=== PATIENT | male | born 1950 | race African-American/Black ===

== ENCOUNTER 2020-03-04 08:42 | Emergency (ER) | payer MEDICARE, OTHER ==
[~2020-03-04] VITALS: Ht 185.4 cm; Wt 102.3 kg
[~2020-03-04 08:42] MED LIST: ALLO300 PO; ASPI81TA40 PO; CARV6 PO; CLOP75TA3 PO; CYCL10 PO; GABA-1181 PO; LOSA50TA37 PO; POTA8TAB4 PO; SIMV-261 PO; prilosec PO
[2020-03-04] MEDS ORDERED: POTA8TAB71 PO (08:55)
[2020-03-04] MEDS ORDERED: FURO20 PO (08:55)
[2020-03-04] MEDS ORDERED: PREG50 PO (08:55)
[2020-03-04] MEDS ORDERED: DULO30CA96 PO (08:55)
[2020-03-04] MEDS ORDERED: LOSA50TA37 PO (08:55)
[2020-03-04] MEDS ORDERED: BACL10TA PO (08:55)
[2020-03-04] MEDS ORDERED: PERCT PO (08:55)
[2020-03-04] MEDS ORDERED: AMLO-257 PO (08:55)
[2020-03-04 09:23] LABS: BASOPHILS % (AUTO) 0.6 % (0.0-2.0); EOSINOPHILS % (AUTO) 0.8 % (1.0-6.0); HEMATOCRIT 47.1 % (41-53); HEMOGLOBIN 15.8 g/dL (13.5-17.5); LYMPHOCYTES # (AUTO) 0.7 K/uL (1.0-4.8); LYMPHOCYTES % (AUTO) 15.4 % (22.0-44.0); MEAN CORPUSCULAR HEMOGLOBIN 31.2 pg (26.0-34.0); MEAN CORPUSCULAR HGB CONC 33.5 G/dL (31.0-37.0); MEAN CORPUSCULAR VOLUME 93 fL (80-100); MONOCYTES # (AUTO) 0.6 K/uL (0.1-1.0); MONOCYTES % (AUTO) 12.6 % (2.0-9.0); NEUTROPHILS # (AUTO) 3.2 K/uL (1.8-7.7); NEUTROPHILS % (AUTO) 70.6 % (40.0-70.0); PLATELET COUNT (AUTO) 193 K/uL (150-450); RED BLOOD CELL COUNT(AUTO) 5.05 MIL/uL (4.50-5.90); RED CELL DISTRIBUTION WIDTH 18.1 % (11.5-14.5)
[2020-03-04 09:37] LABS: CALCIUM, TOTAL 9.3 mg/dL (8.8-10.5); CREATININE 4.8 mg/dL (0.60-1.30); POTASSIUM 3.2 mmol/L (3.5-5.1)
[2020-03-04 10:02] LABS: ALBUMIN 4.1 g/dL (3.4-5.0); BILIRUBIN,TOTAL 1.1 mg/dL (0.1-1.0); MAGNESIUM 3.3 mg/dL (1.80-2.40); TOTAL PROTEIN, SERUM 9.6 g/dL (6.4-8.2)
[2020-03-04] MEDS ORDERED: ASPI-1111 PO (10:08)
[2020-03-04] MEDS ORDERED: SODIUM CHLORIDE 0.9% 1,000 ML IV ONE (10:15)
[2020-03-04] MEDS ORDERED: MORPHINE SULFATE 4 MG/ML SYRINGE IVP ONE (12:00)
[2020-03-04 12:23] LABS: PROTHROMBIN TIME 10.4 SEC (9.4-11.6)
[2020-03-04] MEDS ORDERED: HEPARIN SODIUM,PORCINE 5,000 UNITS/ML VIAL IVP ONE (12:30)
[2020-03-04] MEDS ORDERED: HEPARIN SODIUM,PORCINE 5,000 UNITS/ML VIAL IVP PRN ×2 (12:30)
[2020-03-04] MEDS ORDERED: HEPARIN SODIUM 25000 UNITS/D5W 250 ML IV PRN (12:30)
[2020-03-04 12:48] LABS: BASOPHILS % (AUTO) 0.5 % (0.0-2.0); EOSINOPHILS % (AUTO) 0.4 % (1.0-6.0); HEMATOCRIT 44.4 % (41-53); HEMOGLOBIN 14.8 g/dL (13.5-17.5); LYMPHOCYTES # (AUTO) 0.8 K/uL (1.0-4.8); LYMPHOCYTES % (AUTO) 15.4 % (22.0-44.0); MEAN CORPUSCULAR HEMOGLOBIN 31.2 pg (26.0-34.0); MEAN CORPUSCULAR HGB CONC 33.2 G/dL (31.0-37.0); MEAN CORPUSCULAR VOLUME 94 fL (80-100); NEUTROPHILS # (AUTO) 3.2 K/uL (1.8-7.7); NEUTROPHILS % (AUTO) 63.7 % (40.0-70.0); PLATELET COUNT (AUTO) 163 K/uL (150-450); RED BLOOD CELL COUNT(AUTO) 4.74 MIL/uL (4.50-5.90); RED CELL DISTRIBUTION WIDTH 17.9 % (11.5-14.5)
[2020-03-04 13:02] LABS: PROTHROMBIN TIME 10.6 SEC (9.4-11.6)
[2020-03-04] MEDS ORDERED: SODIUM BICARBONATE IV ONE (14:00)
[2020-03-04] MEDS ORDERED: SODIUM CHLORIDE 0.9% IV ONE (14:00)
[2020-03-04] MEDS ORDERED: SODIUM BICARBONATE 75 MEQ in SODIUM CHLORIDE 0.45% 1,000 ML IV ONE (14:00)
[2020-03-04 15:27] VITALS: BP 113/69
[2020-03-04 16:17] LABS: GLUCOSE,POINT OF CARE 121 MG/DL (70-110)
== END 2020-03-04 15:28 | disposition short-term general hospital (02) ==
LOC: EMS 08:48
DX: E83.41 Hypermagnesemia (principal); E87.1 Hypo-osmolality and hyponatremia; E87.8 Other disorders of electrolyte and fluid balance, not elsewhere classified; N17.9 Acute kidney failure, unspecified; I70.202 Unspecified atherosclerosis of native arteries of extremities, left leg; I11.0 Hypertensive heart disease with heart failure; I50.9 Heart failure, unspecified; F17.210 Nicotine dependence, cigarettes, uncomplicated; E78.00 Pure hypercholesterolemia, unspecified; E11.9 Type 2 diabetes mellitus without complications; Z86.79 Personal history of other diseases of the circulatory system
CPT/HCPCS: 36415; 70450; 71045; 76705; 80053; 82550; 82962; 83690; 83735; 83880; 84484; 85025; 85610; 85730; 93005; 93925; 96365; 96366; 96368; 96375; 96376; 99291; J1644 ×2; J2270; J3490; J7030